=== PATIENT | male | born 1955 | race Caucasian/White ===

== ENCOUNTER 2017-02-10 03:11 | Emergency (ER) | payer MEDICARE, MEDICAID ==
--- NOTE | 2017-02-10 03:42 | Emergency Department Record ---
History of Present Illness - General Chief Complaint: Fall Injury Stated Complaint: FALL/KNEE INJURY Time Seen by Provider: 02/10/17 03:29 Source: Patient Mode of Arrival: Ambulatory Limitations: No limitations - History of Present Illness Initial Comments: The patient is here with his caregiver do to falling at hour ago at home. He was walking with his walker and tripped on the carpet and fell forward bumping his head and landing on his L knee. Since the fall he has been able to walk on the L leg but is having L knee pain. There was no LOC and no MARTINS or neck pain presently. The patient has a hx of seizures and mental retardation and possibly has had a brain injury in the past. The caregiver states the patient has been at his home for 4 days and uses a walker to ambulate. He denies any recent illness. The patient has had no recent vomiting, diarrhea, weakness, fever, chills, or new confusion. MD Complaint: Fall Onset/Timin -: Hour(s) When Fall Occurred: 1-3 [address] [facility] Fall Occurred: [facility] Loss of Consciousness: None Prolonged Down Time?: Yes Symptoms Prior to Fall: None Context: History of frequent falls, Tripped/slipped - [place] Coma Scale Eye Response: (4) Open spontaneously Motor Response: (6) Obeys commands Verbal Response: (5) Oriented [place] Total: 15 - Related Data Home Medications Medication Instructions Recorded Confirmed Last Taken Aspirin 81 mg PO DAILY 02/10/17 02/10/17 Unknown Atorvastatin Calcium 40 mg PO DAILY 02/10/17 02/10/17 Unknown Cholecalciferol (Vitamin D3) 5,000 unit PO ASDIR 02/10/17 02/10/17 Unknown [Vitamin D3] Darifenacin Hydrobromide 7.5 mg PO DAILY 02/10/17 02/10/17 Unknown [Darifenacin ER] Diphenhydramine HCl [Benadryl] 25 mg PO NOW PRN 02/10/17 02/10/17 Unknown Divalproex Sodium [Depakote ER] 250 mg PO QAM 02/10/17 02/10/17 Unknown Divalproex Sodium [Depakote] 1,500 mg PO QHS 02/10/17 02/10/17 Unknown Lamotrigine [Lamictal] 150 mg PO QHS 02/10/17 02/10/17 Unknown Melatonin 5 mg PO QHS 02/10/17 02/10/17 Unknown Metformin HCl 500 mg PO BID 02/10/17 02/10/17 Unknown Olanzapine [Zyprexa] 10 mg PO QAM 02/10/17 02/10/17 Unknown Olanzapine [Zyprexa] 30 mg PO QHS 02/10/17 02/10/17 Unknown Omeprazole [Prilosec] 20 mg PO DAILY 02/10/17 02/10/17 Unknown Paroxetine HCl [Paxil] 40 mg PO DAILY 02/10/17 02/10/17 Unknown Allergies Allergy/AdvReac Type Severity Reaction Status Date / Time Penicillins Allergy PT UNSURE Verified 02/10/17 03:52 OF REACTION Travel Screening - Travel/Exposure Within Last 30 Days Have you traveled within the last 30 days?: No Review of Systems Constitutional: Denies: Chills, Fever Eyes: Denies: Eye discharge ENT: Denies: Congestion Respiratory: Denies: Cough Past Medical History - SOCIAL HISTORY Smoking Status: Never smoker Alcohol Use: None Drug Use: None - RESPIRATORY Hx Respiratory Disorders: No - CARDIOVASCULAR Hx Cardio Disorders: No - NEURO Hx Neuro Disorders: Yes Hx Seizures: Yes Comment:: hx of brain bleed per caregiver - GI Hx GI Disorders: Yes Hx Reflux: Yes - Hx Genitourinary Disorders: No - ENDOCRINE Hx Endocrine Disorders: No - MUSCULOSKELETAL Hx Musculoskeletal Disorders: No - PSYCH Hx Psych Problems: Yes Hx Anxiety: Yes - HEMATOLOGY/ONCOLOGY Hx Hematology/Oncology Disorders: No Family Medical History Any Significant Family History?: No Family Hx Comment (NOT TO BE USED IN PLACE OF ITEMS BELOW): uknown Physical Exam - General General Appearance: Alert, Cooperative, No acute distress - Head Head exam: Atraumatic, Normocephalic, Normal inspection - Eye Eye exam: Normal appearance, PERRL - Neck Neck exam: Normal inspection, Full ROM. negative: Tenderness - Respiratory Respiratory exam: Normal lung sounds bilaterally. negative: Respiratory distress - Cardiovascular Cardiovascular Exam: Regular rate, Normal rhythm, Normal heart sounds - GI/Abdominal GI/Abdominal exam: Soft, Normal bowel sounds. negative: Tenderness - Extremities Extremities exam: Full ROM (There is full ROM of the L knee with mild pain.), Normal capillary refill, Tenderness (There is diffuse tenderness to the L knee.) . negative: Normal inspection (There is bruising to the L knee anteriorly.), Joint swelling - Neurological Neurological exam: Abnormal gait (Chronic. Walks with a walker normally.), Alert. negative: Altered, Motor sensory deficit Course Vital Signs 02/10/17 03:17 Temperature 98.4 F Pulse Rate [ 69 Pulse Ox Probe] Respiratory 24 Rate Blood Pressure 86/65 [Left Arm] Pulse Ox 95 - Reevaluation(s) Reevaluation #1: The patient is doing very well at this time. He denies any MARTINS, neck pain or knee pain. His BP is improved most likely due to using the proper cuff size while taking his BP. It seems his original BP measurements were with the large cuff and the patient actually needs the regular size cuff. The patient is mildly anemic but his HGB was 10.0 last at [facility] so his level is improved today. 02/10/17 04:27 Reevaluation #2: The patient is doing well at this time. I did discuss the results with the caregiver and the need for F/U possibly. 02/10/17 04:36 Medical Decision Making - Data Complexity MDM Data: Labs Ordered and/or Reviewed, X-Ray Ordered and/or Reviewed - Lab Data Result diagrams: 02/10/17 03:48 02/10/17 03:48 - Radiology Data Radiology results: Report reviewed (Head CT: Neg.), Image reviewed (L knee: Neg. ) Disposition Disposition: Discharge Clinical Impression: Contusion of knee Qualifiers: Encounter type: initial encounter Laterality: left Qualified Code(s): S80.02XA - Contusion of left knee, initial encounter Disposition: Home, Self-Care Condition: (1) Good Instructions: Knee Sprain (ED), Fall Prevention for Older Adults (ED) Additional Instructions: Please use ice on the L knee during the day when possible the next 2 days. Please use Tylenol for pain. Please see your PCP if not better in 3 days and return to the ER for any problems, pain, fever, or vomiting. Forms: Patient Portal Access Time of Disposition: 04:30 Quality - Quality Measures Quality Measures: N/A - Blood Pressure Screening View Details: Yes Blood Pressure Classification: Normal BP Reading Systolic Measurement: 106 Diastolic Measurement: 58 Screening for High Blood Pressure: < Normal BP, F/U Not Required > [G8783] Normal BP Follow-up Interventions: No follow-up required
[2017-02-10 03:56] LABS: BASO % 0.2 % (0-6); GRAN % 54.3 % (47-80); HEMATOCRIT 32.6 % (42.0-52.0); HEMOGLOBIN 10.8 gm/dl (14.0-18.0); MEAN CELL VOLUME 93.4 fl (81-97); MEAN CORPUSCULAR HEMOGLOBIN 30.9 pg (27-33); MEAN CORPUSCULAR HGB CONC 33.1 g/dl (32-36); MEAN PLATELET VOLUME 11.7 fl (7.4-10.4); MONO % 9.5 % (0-9); PLATELET COUNT 147 K/uL (130-400); RED BLOOD COUNT 3.49 M/uL (4.40-5.70); RED CELL DISTRIBUTION WIDTH 15.1 % (11.5-14.5); WHITE BLOOD COUNT W/O DIFF 6.5 K/uL (4.2-12.2)
[2017-02-10 04:07] LABS: BLOOD UREA NITROGEN 17 mg/dL (9-20); CREATININE 0.7 mg/dL (0.66-1.25); EST GLOMERULAR FILTRATION RATE > 60 ml/min; GLUCOSE,RANDOM 91 mg/dL (70-110)
--- NOTE | 2017-02-10 13:28 | RADIOLOGY REPORT ---
EXAM: LEFT KNEE HISTORY: PATIENT FELL AN HOUR PRIOR TO ARRIVING, LANDING ON LEFT KNEE AND HITTING HEAD ON FLOOR. TECHNIQUE: Three views of the left knee were obtained. Comparison: None. Encounter: Initial. FINDINGS: Mild spurring is seen involving the patella. On the oblique view there is a small calcification adjacent to the superior end of the fibular head. This appears chronic in nature although correlation with point tenderness suggested. No definite fracture, dislocation, or joint effusion evident. Very minor spurring in the medial and lateral compartments of the knee. IMPRESSION: 1. MINOR DEGENERATIVE CHANGES AT THE KNEE. 2. SMALL CALCIFICATION JUST SUPERIOR TO THE FIBULAR HEAD IS LIKELY CHRONIC IN NATURE. CORRELATION WITH POINT TENDERNESS SUGGESTED. 3. THE REMAINDER OF THE LEFT KNEE APPEARS NEGATIVE. JOB NUMBER: [id number] [facility]
--- NOTE | 2017-02-10 13:40 | CT SCAN REPORT ---
EXAM: EMERGENCY HEAD CT HISTORY: PATIENT FELL AN HOUR PRIOR TO ARRIVAL HITTING HEAD ON FLOOR. TECHNIQUE: Axial CT scan of the head was performed without IV contrast. A preliminary report was provided by [facility]. Comparison: None. Encounter: Initial. FINDINGS: No definite acute intracranial hemorrhage identified. No focal mass effect or midline shift apparent. Mild generalized atrophy is present with some chronic appearing deep white matter changes, nonspecific, but likely representing some chronic small vessel deep white matter ischemic disease. No definite acute infarct or intracranial mass lesion is seen. Moderate membrane thickening in the right maxillary antrum and prominent opacification posteriorly in the right ethmoid sinus. No actual air fluid levels in the paranasal sinuses evident. Relatively little pneumatization of the mastoids particularly on the right, probably developmental. IMPRESSION: 1. NO DEFINITE ACUTE INTRACRANIAL HEMORRHAGE OR FOCAL MASS EFFECT EVIDENT. 2. GENERALIZED ATROPHY WITH SOME CHRONIC APPEARING DEEP WHITE MATTER CHANGES. 3. SOME MEMBRANE THICKENING IN THE RIGHT MAXILLARY SINUS AND PROMINENT OPACIFICATION POSTERIORLY IN THE RIGHT ETHMOIDS. JOB NUMBER: [id number] [facility]
== END 2017-02-10 04:48 | disposition home or self-care (01) ==
LOC: ER 03:11
DX: S80.02XA Contusion of left knee, initial encounter (principal); S09.90XA Unspecified injury of head, initial encounter; D64.9 Anemia, unspecified; G40.909 Epilepsy, unspecified, not intractable, without status epilepticus; F79 Unspecified intellectual disabilities; W01.10XA Fall on same level from slipping, tripping and stumbling with subsequent striking against unspecified object, initial encounter; Y92.129 Unspecified place in nursing home as the place of occurrence of the external cause; Z91.81 History of falling
CPT/HCPCS: 70450; 80048; 80164; 85025; 99283; 99284

== ENCOUNTER 2017-03-16 01:59 | Emergency (ER) | payer MEDICARE, MEDICAID ==
--- NOTE | 2017-03-16 02:10 | Emergency Department Record ---
History of Present Illness - General Chief Complaint: Fall Injury Stated Complaint: FALL Time Seen by Provider: 03/16/17 02:05 Source: Patient Mode of Arrival: Ambulatory Limitations: No limitations - History of Present Illness Initial Comments: 61 yo male presents after a fall a local [facility]. No LOC. He did hit his forehead. He denies any other pain or injuries. The patient uses a walker. He was getting up to the bathroom and tripped using the walker. No neck, back, chest, abdominal or extremity pain. He has laceration on the left forehead. No vomiting or new confusion. MD Complaint: Fall -: Minutes(s) Fall From: Standing When Fall Occurred: Just prior to arrival Fall Witnessed: Yes, by living facility staff Place Fall Occurred: Home Loss of Consciousness: None Prolonged Down Time?: No Symptoms Prior to Fall: None Location: Head, Face Severity: Mild Quality: Aching Associated Symptoms: Denies - [place] Coma Scale Eye Response: (4) Open spontaneously Motor Response: (6) Obeys commands Verbal Response: (5) Oriented [place] Total: 15 - Related Data Home Medications Medication Instructions Recorded Confirmed Last Taken Acetaminophen [Tylenol 500Mg Tab] 500 mg PO DAILY PRN 03/16/17 03/16/17 Unknown Lisinopril 20 mg PO DAILY 03/16/17 03/16/17 Unknown Allergies Allergy/AdvReac Type Severity Reaction Status Date / Time Penicillins Allergy PT UNSURE Verified 02/10/17 03:52 OF REACTION Review of Systems Constitutional: Denies: Chills, Fever, Malaise Eyes: Denies: Eye discharge, Eye pain ENT: Denies: Congestion, Throat pain Respiratory: Denies: Cough Cardiovascular: Denies: Chest pain, Palpitations, Syncope Endocrine: Denies: Fatigue Gastrointestinal: Denies: Abdominal pain, Diarrhea, Nausea, Vomiting Genitourinary: Denies: Dysuria, Frequency, Hematuria Musculoskeletal: Denies: Arthralgia, Back pain, Myalgia Skin: Reports: As per HPI, Other Neurological: Denies: Headache Psychiatric: Denies: Anxiety Hematological/Lymphatic: Denies: Blood Clots, Easy bleeding, Easy bruising Past Medical History - SOCIAL HISTORY Smoking Status: Never smoker Drug Use: None - RESPIRATORY Hx Respiratory Disorders: No - CARDIOVASCULAR Hx Cardio Disorders: No - NEURO Hx Neuro Disorders: Yes Hx Seizures: Yes Comment:: hx of brain bleed per caregiver - GI Hx GI Disorders: Yes Hx Reflux: Yes - Hx Genitourinary Disorders: No - ENDOCRINE Hx Endocrine Disorders: No - MUSCULOSKELETAL Hx Musculoskeletal Disorders: No - PSYCH Hx Psych Problems: Yes Hx Anxiety: Yes - HEMATOLOGY/ONCOLOGY Hx Hematology/Oncology Disorders: No Family Medical History Family Hx Comment (NOT TO BE USED IN PLACE OF ITEMS BELOW): uknown Physical Exam - General General Appearance: Alert, Cooperative, No acute distress, Other (At baseline) - Head Head exam: negative: Atraumatic Head exam detail: Laceration Image of Face/Head: 1 - 1.5cm laceration - Eye Eye exam: Normal appearance, EOMI. negative: Conjunctival injection, Periorbital swelling - ENT ENT exam: Normal exam, Mucous membranes moist Ear exam: Normal external inspection Nasal Exam: Normal inspection Mouth exam: Normal external inspection - Neck Neck exam: Normal inspection, Full ROM. negative: Tenderness - Respiratory Respiratory exam: Normal lung sounds bilaterally. negative: Chest wall tenderness, Respiratory distress - Cardiovascular Cardiovascular Exam: Regular rate, Normal rhythm, Normal heart sounds Peripheral Pulses: 2+: Radial (R), Radial (L) - GI/Abdominal GI/Abdominal exam: Soft. negative: Distended, Guarding, Rebound, Tenderness - Rectal Rectal exam: Deferred - exam: Deferred - Extremities Extremities exam: Normal inspection, Full ROM, Normal capillary refill. negative: Tenderness Image of Hand: 1 - mild swelling and mild bruising, tender, intact skin - Back Back exam: Reports: Full ROM. Denies: CVA tenderness (R), CVA tenderness (L), Paraspinal tenderness, Tenderness, Vertebral tenderness - Neurological Neurological exam: Alert, Normal gait (ambulates well with walker), Oriented X3. negative: Motor sensory deficit - Psychiatric Psychiatric exam: Normal affect, Normal mood - Skin Skin exam: Dry, Intact, Normal color, Warm Course - Reevaluation(s) Reevaluation #1: Procedure !.5cm forehead laceration repair Betadine prep Lidocaine with Epi 1.5ml NS irrigation and cleaning copiously No FB Prolene 4-0 suture #4 Good wound approximation. Tolerated Well. 03/16/17 02:30 Reevaluation #2: HCT no acute injury. chronic sinusitis DC home stable with instructions for home care and reasons to return to the ED 03/16/17 03:19 Reevaluation #3: At DC left hand bruising noted. May not be acute but it is tender so XR ordered. 03/16/17 03:33 Reevaluation #4: XR demonstrates a 5th finger proximal phalange fx and a 4th MC fracture. He will be splinted and referred to ortho/hand. 03/16/17 03:46 Disposition Disposition: Discharge Clinical Impression: Contusion of head Qualifiers: Encounter type: initial encounter Contusion of head detail: other part of head Qualified Code(s): S00.83XA - Contusion of other part of head, initial encounter Forehead laceration Qualifiers: Encounter type: initial encounter Qualified Code(s): S01.81XA - Laceration without foreign body of other part of head, initial encounter Hand fracture, left Qualifiers: Encounter type: initial encounter Fracture type: closed Qualified Code(s): S62.92XA - Unspecified fracture of left wrist and hand, initial encounter for closed fracture Disposition: Home, Self-Care Condition: (1) Good Instructions: Laceration (ED), Fall Prevention for Older Adults (ED) Additional Instructions: Return if you have any concerns for infection such as fever, red, pus or concerns Return in 7 days for suture removal Return sooner if any new pain, dizzy, concerns about the healing of the laceration of the forehead Call the number provided for a referral for the left hand fracture Referrals: SHARON OGLESBY M.D. [MEDICAL DOCTOR] - Forms: Patient Portal Access Time of Disposition: 03:20 Quality - Quality Measures Quality Measures: N/A - Blood Pressure Screening Does Patient Have Any of the Following: No Blood Pressure Classification: Normal BP Reading Systolic Measurement: 95 Diastolic Measurement: 50 Screening for High Blood Pressure: < Normal BP, F/U Not Required > [G8783]
--- NOTE | 2017-03-16 14:20 | RADIOLOGY REPORT ---
EXAM: LEFT HAND HISTORY: PATIENT FELL FROM STANDING POSITION HITTING HEAD ON FLOOR AND PAIN IN THE LEFT HAND. TECHNIQUE: Three views of the left hand were obtained. Comparison: None. FINDINGS: There is a comminuted fracture of the proximal phalanx of the fifth finger that extends from the distal metaphysis proximally to the level of the fifth MCP joint. Minimal associated displacement. The PIP joint of the fifth finger held in flexion which is presumably chronic for the patient. There is also an oblique fracture of the mid shaft extending into the distal metaphysis of the fourth metacarpal with some dorsal angulation of the proximal aspect of the distal fracture fragment probably by approximately 5.5 mm. There is overlying soft tissue swelling. Some radiolucency in the mid shaft of the fifth metacarpal may represent an enchondroma and does not appear acute. There is probably also an acute fracture of the proximal metaphysis of the distal phalanx of the fourth finger and clinical correlation as to point tenderness at this site suggested. Mild degenerative arthritis at the first CMC articulation at the first MCP joint. IMPRESSION: 1. ACUTE FRACTURES OF THE PROXIMAL PHALANX OF THE FIFTH FINGER, FOURTH METACARPAL, AND PROBABLY THE DISTAL PHALANX OF THE FOURTH FINGER DESCRIBED ABOVE. OVERLYING SOFT TISSUE SWELLING. 2. RADIOLUCENT LESION IN THE MID SHAFT OF THE FIFTH METACARPAL APPEARS CHRONIC AND MAY REPRESENT AN ENCHONDROMA. JOB NUMBER: [id number] [facility]
--- NOTE | 2017-03-16 14:53 | CT SCAN REPORT ---
EXAM: EMERGENCY HEAD CT WITHOUT CONTRAST HISTORY: PATIENT FELL WITH HEAD INJURY AND LACERATION OVERLYING THE LEFT SUPERIOR ORBITAL REGION. TECHNIQUE: Axial CT scan of the head was performed without IV contrast. A preliminary report was provided by [facility]. Comparison: Head CT 02/10/17. Encounter: Initial. FINDINGS: No definite acute intracranial hemorrhage identified. No focal mass effect or midline shift evident. Generalized atrophy with some chronic appearing deep white matter changes as before, nonspecific, but likely representing some chronic small vessel deep white matter ischemic disease. There is a small amount of air in the scalp overlying the left forehead consistent with a scalp laceration in this region. This is new compared with the prior CT. No abnormal intraorbital air identified. There is prominent opacification in the posterior aspect of the right ethmoid sinus and adjacent sphenoid sinus which appears slightly progressed compared to the prior study. Membrane thickening in the right maxillary antrum appears essentially unchanged as does a minor amount at the floor of the left maxillary antrum. No depressed calvarial fracture is evident. IMPRESSION: 1. NO DEFINITE ACUTE INTRACRANIAL HEMORRHAGE OR FOCAL MASS EFFECT EVIDENT. 2. GENERALIZED ATROPHY WITH SOME MINOR CHRONIC APPEARING DEEP WHITE MATTER CHANGES BEFORE. 3. APPEARANCE CONSISTENT WITH A SCALP LACERATION OVERLYING THE LEFT FOREHEAD. NO UNDERLYING CALVARIAL FRACTURE EVIDENT. 4. MEMBRANE THICKENING IN THE MAXILLARY ANTRA BILATERALLY, RIGHT GREATER THAN LEFT BEFORE. MILD PROGRESSION IN PROMINENT OPACIFICATION IN THE RIGHT POSTERIOR ETHMOID AND RIGHT SPHENOID SINUS. JOB NUMBER: [id number] [facility]
== END 2017-03-16 04:05 | disposition home or self-care (01) ==
LOC: ER 01:59
DX: S01.81XA Laceration without foreign body of other part of head, initial encounter (principal); S62.637A Displaced fracture of distal phalanx of left little finger, initial encounter for closed fracture; W01.0XXA Fall on same level from slipping, tripping and stumbling without subsequent striking against object, initial encounter; Y92.009 Unspecified place in unspecified non-institutional (private) residence as the place of occurrence of the external cause
CPT/HCPCS: 12011; 70450; 99283; 99284

== ENCOUNTER 2017-07-27 00:08 | Emergency (ER) | payer MEDICARE, MEDICAID ==
[2017-07-27] MEDS ORDERED: SODIUM CHLORIDE 0.9% 500 ML IV ONE (00:25)
[2017-07-27 00:35] LABS: HEMATOCRIT 31.6 % (42.0-52.0); HEMOGLOBIN 10.2 gm/dl (14.0-18.0); MEAN CELL VOLUME 96.3 fl (81-97); MEAN CORPUSCULAR HGB CONC 32.3 g/dl (32-36); MEAN PLATELET VOLUME 11.2 fl (7.4-10.4); PLATELET COUNT 107 K/uL (130-400); RED BLOOD COUNT 3.28 M/uL (4.40-5.70); RED CELL DISTRIBUTION WIDTH 15.9 % (11.5-14.5); WHITE BLOOD COUNT W/O DIFF 7.3 K/uL (4.2-12.2)
[2017-07-27 00:45] LABS: BLOOD UREA NITROGEN 21 mg/dL (8-23); CREATININE 0.8 mg/dL (0.7-1.2); EST GLOMERULAR FILTRATION RATE > 60 mL/min; INFLUENZA A POSITIVE (NEGATIVE); INFLUENZA B NEGATIVE (NEGATIVE)
[2017-07-27 00:46] LABS: TOTAL PROTEIN 5.9 g/dL (6.6-8.7)
[2017-07-27 00:48] LABS: GLUCOSE,RANDOM 92 mg/dL (74-109)
[2017-07-27 00:50] LABS: ALT/SGPT 21 U/L (<41)
[2017-07-27 00:51] LABS: ALB/GLOB RATIO 1.2 (1.1-1.8); ALBUMIN 3.2 g/dL (4.0-5.0); ALKALINE PHOSPHATASE 52 U/L (40-129); AST/SGOT 32 U/L (10.0-50.0)
[2017-07-27] MEDS ORDERED: ACETAMINOPHEN 1,000 MG/100 ML BTL IVPB ONE (01:00)
--- NOTE | 2017-07-27 01:06 | Emergency Department Record ---
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 he had a temp of 100.5. he lives in adult foster care. he has cerebral palsy. there reportedly have been no other illnesses at [facility] MD Complaint: Fever, Malaise, Weakness Onset/Timin -: Hour(s) Maximum Temperature: 100.5 F Temperature Source: Oral Associated Symptoms: Chills, Cough, Nasal congestion Treatments Prior to Arrival: None - Related Data Home Medications Medication Instructions Recorded Confirmed Last Taken Ergocalciferol (Vitamin D2) 1.25 unit PO WEEKLY 07/27/17 07/27/17 Unknown [Ergocalciferol] Allergies Allergy/AdvReac Type Severity Reaction Status Date / Time Penicillins Allergy PT UNSURE Verified 02/10/17 03:52 OF REACTION Travel Screening - Travel/Exposure Within Last 30 Days Have you traveled within the last 30 days?: No - Travel Symptoms Symptom Screening: Fever (Subjective), Fever (GT 100.4), Weakness, Fatigue, Chills Review of Systems ROS unobtainable: Due to mental status Past Medical History - SOCIAL HISTORY Smoking Status: Never smoker Alcohol Use: None Drug Use: None - RESPIRATORY Hx Respiratory Disorders: No - CARDIOVASCULAR Hx Cardio Disorders: No Hx Hypertension: Yes - NEURO Hx Neuro Disorders: Yes Hx Seizures: Yes Comment:: hx of brain bleed per caregiver, CEREBAL PALSY - GI Hx GI Disorders: Yes Hx Reflux: Yes - Hx Genitourinary Disorders: Yes Hx Bladder Problem: Yes (overactive bladder) - ENDOCRINE Hx Endocrine Disorders: No Hx Diabetes: Yes (DM2) - MUSCULOSKELETAL Hx Musculoskeletal Disorders: No - PSYCH Hx Psych Problems: Yes Hx Anxiety: Yes - HEMATOLOGY/ONCOLOGY Hx Hematology/Oncology Disorders: No Family Medical History Any Significant Family History?: No Family Hx Comment (NOT TO BE USED IN PLACE OF ITEMS BELOW): UNKNOWN Physical Exam - General General Appearance: Alert, Cooperative, Moderate distress - Head Head exam: Normal inspection - Eye Eye exam: Normal appearance, PERRL, EOMI Pupils: Normal accommodation - ENT ENT exam: Normal exam, Mucous membranes dry, Normal external ear exam, Normal orophraynx Ear exam: Normal external inspection. negative: External canal tenderness Nasal Exam: Normal inspection. negative: Discharge, Sinus tenderness Mouth exam: Normal external inspection, Tongue normal Teeth exam: Normal inspection. negative: Dental caries Throat exam: Normal inspection. negative: Tonsillar erythema, Tonsillar exudate - Neck Neck exam: Normal inspection, Full ROM. negative: Tenderness - Respiratory Respiratory exam: Normal lung sounds bilaterally. negative: Respiratory distress - Cardiovascular Cardiovascular Exam: Normal rhythm, Normal heart sounds, Tachycardia - GI/Abdominal GI/Abdominal exam: Soft, Normal bowel sounds. negative: Tenderness - Rectal Rectal exam: Deferred - exam: Deferred - Extremities Extremities exam: Normal inspection, Full ROM, Normal capillary refill. negative: Tenderness - Back Back exam: Reports: Normal inspection, Full ROM. Denies: Muscle spasm, Rash noted, Tenderness - Neurological Neurological exam: Alert, CN II-XII intact, Normal gait, Other (contractures from cp) - Psychiatric Psychiatric exam: Normal affect, Normal mood - Skin Skin exam: Dry, Intact, Normal color, Warm Course Vital Signs 07/27/17 07/27/17 07/27/17 00:15 00:24 00:25 Temperature 101.5 F H 101.5 F H Pulse Rate 115 H Pulse Rate [ 115 H 107 H Pulse Ox Probe] Respiratory 18 22 24 Rate Blood Pressure 77/28 Blood Pressure 80/31 [Left Arm] Blood Pressure 77/28 [Right Arm] Pulse Ox 92 L 90 L 94 L 07/27/17 00:30 Temperature Pulse Rate Pulse Rate [ Pulse Ox Probe] Respiratory Rate Blood Pressure Blood Pressure 103/67 [Left Arm] Blood Pressure [Right Arm] Pulse Ox - Reevaluation(s) Reevaluation #1: 07/27/17 02:14 d/w dr mayer Reevaluation #2: 07/27/17 02:15 pt is alert and responds verbally to questions. pt has irregular breathing pattern when sleeping but im told by caregiver that he always does and that he is supposed to wear bipap at night but refuses.pt is maintaining sats 90-94. bloodpresure has improved Medical Decision Making - Lab Data Result diagrams: 07/27/17 00:25 07/27/17 00:25 Lab Results 07/27/17 07/27/17 07/27/17 Range/Units 00:25 00:25 00:25 WBC 7.3 (4.2-12.2) K/uL RBC 3.28 L (4.40-5.70) M/uL Hgb 10.2 L (14.0-18.0) gm/dl Hct 31.6 L (42.0-52.0) % MCV 96.3 (81-97) fl MCH 31.0 (27-33) pg MCHC 32.3 (32-36) g/dl RDW 15.9 H (11.5-14.5) % Plt Count 107 L (130-400) K/uL MPV 11.2 H (7.4-10.4) fl Neutrophils % 83.0 H (47-80) % Band Neutrophils % 0.0 (0-5) % Eosinophils % Not Reportable Basophils % Not Reportable Lymphocytes 5.0 L (16-45) % Monocytes 12.0 H (0-9) % Basophils 0.0 (0-6) % Eosinophil Count 0.0 (0-6) % Sodium 138 (136-145) mmol/L Potassium 4.2 (3.4-4.5) mmol/L Chloride 100 (98-107) mmol/L Carbon Dioxide 26.0 (22-29) mmol/L Anion Gap 12.0 (7-16) BUN 21 (8-23) mg/dL Creatinine 0.8 (0.7-1.2) mg/dL Estimated GFR > 60 mL/min Random Glucose 92 (74-109) mg/dL Lactic Acid Cancelled Calcium 8.4 L (8.8-10.2) mg/dL Total Bilirubin 0.30 (0.2-1.0) mg/dL AST 32 (10.0-50.0) U/L ALT 21 (<41) U/L Alkaline Phosphatase 52 (40-129) U/L Total Protein 5.9 L (6.6-8.7) g/dL Albumin 3.2 L (4.0-5.0) g/dL Globulin 2.7 (1.4-4.8) gm/dL Albumin/Globulin Ratio 1.2 (1.1-1.8) Influenza Type A Ag Positive H (NEGATIVE) Influenza Type B Ag Negative (NEGATIVE) 07/27/17 Range/Units 00:33 WBC (4.2-12.2) K/uL RBC (4.40-5.70) M/uL Hgb (14.0-18.0) gm/dl Hct (42.0-52.0) % MCV (81-97) fl MCH (27-33) pg MCHC (32-36) g/dl RDW (11.5-14.5) % Plt Count (130-400) K/uL MPV (7.4-10.4) fl Neutrophils % (47-80) % Band Neutrophils % (0-5) % Eosinophils % Basophils % Lymphocytes (16-45) % Monocytes (0-9) % Basophils (0-6) % Eosinophil Count (0-6) % Sodium (136-145) mmol/L Potassium (3.4-4.5) mmol/L Chloride (98-107) mmol/L Carbon Dioxide (22-29) mmol/L Anion Gap (7-16) BUN (8-23) mg/dL Creatinine (0.7-1.2) mg/dL Estimated GFR mL/min Random Glucose (74-109) mg/dL Lactic Acid 2.0 Calcium (8.8-10.2) mg/dL Total Bilirubin (0.2-1.0) mg/dL AST (10.0-50.0) U/L ALT (<41) U/L Alkaline Phosphatase (40-129) U/L Total Protein (6.6-8.7) g/dL Albumin (4.0-5.0) g/dL Globulin (1.4-4.8) gm/dL Albumin/Globulin Ratio (1.1-1.8) Influenza Type A Ag (NEGATIVE) Influenza Type B Ag (NEGATIVE) Disposition Disposition: Transfer Clinical Impression: Influenza A Disposition: Acute Care Hospital Transfer Transfer To: [facility] Reason For Transfer: needs higher acuity bed Accepting Physician: dr yi Time Discussed w/Accepting Physician: 02:13 Forms: Patient Portal Access Quality - Quality Measures Quality Measures: N/A - Blood Pressure Screening Does Patient Have Any of the Following: No Blood Pressure Classification: Normal BP Reading Systolic Measurement: 77 Diastolic Measurement: 28 Screening for High Blood Pressure: < Normal BP, F/U Not Required > [G8783]
[2017-07-27] MEDS ORDERED: OSTELTAMIVIR 75 MG CAP PO ONE (02:02)
--- NOTE | 2017-07-27 20:58 | RADIOLOGY REPORT ---
EXAM: CHEST 2 VIEWS HISTORY: FEVER AND COUGH. TECHNIQUE: AP and lateral views. COMPARISON: None. FINDINGS: Heart size is within normal limits allowing for the AP positioning. There is some minor streaky atelectasis or infiltrate in the left base. No pleural effusion or pneumothorax evident. There is mild compression of multiple thoracic vertebrae, particularly the approximate seventh. This is presumably chronic, although comparison with any prior thoracic spine series or chest x- rays including lateral views would be useful to confirm. There is also a thoracic curve to the right. Surgical clips in the right upper quadrant of the abdomen, presumably from cholecystectomy. IMPRESSION: 1. MILD STREAKY ATELECTASIS OR INFILTRATE IN THE LEFT BASE. 2. THORACIC CURVE TO THE RIGHT WITH MILD COMPRESSION OF MULTIPLE THORACIC VERTEBRAE, PRESUMABLY CHRONIC, ALTHOUGH RECOMMEND COMPARISON WITH OLD FILMS. 3. SURGICAL CLIPS RIGHT UPPER QUADRANT OF THE ABDOMEN. JOB NUMBER: [id number] MTDD
== END 2017-07-27 03:10 | disposition short-term general hospital (02) ==
LOC: ER 00:08
DX: J10.1 Influenza due to other identified influenza virus with other respiratory manifestations (principal); R53.1 Weakness; I10 Essential (primary) hypertension; E11.9 Type 2 diabetes mellitus without complications; G80.9 Cerebral palsy, unspecified
CPT/HCPCS: 71046; 80053; 83605; 85027; 87400; 96374; 99285

== ENCOUNTER 2018-02-26 16:09 | Emergency (ER) | payer MEDICARE, MEDICAID ==
[2018-02-26] MEDS ORDERED: TOPICAL LIDOCAINE W/ EPI 5 ML TOP ONE (16:36)
--- NOTE | 2018-02-26 17:23 | Emergency Department Record ---
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 no loc, no vomiting. MD Complaint: Head injury Onset/Timin -: Hour(s) Mechanism of Injury: Mechanical fall Location: Occipital Place: Home Severity scale (1-10): 4 Quality: Aching Consistency: Constant Other Injuries: Laceration - Related Data Allergies/Adverse reactions: Allergies Allergy/AdvReac Type Severity Reaction Status Date / Time Penicillins Allergy PT UNSURE Verified 02/26/18 16:26 OF REACTION Travel Screening - Travel/Exposure Within Last 30 Days Have you traveled within the last 30 days?: No - Travel/Exposure Within Last Year Have you traveled outside the [place] in the last year?: No - Additonal Travel Details Have you been exposed to anyone with a communicable illness?: No - Travel Symptoms Symptom Screening: None Review of Systems Reviewed: No additional complaints except as noted below Constitutional: Reports: As per HPI. Denies: Chills, Fever, Malaise, Night sweats, Weakness, Weight change Eyes: Reports: As per HPI. Denies: Eye discharge, Eye pain, Photophobia, Vision change ENT: Reports: As per HPI. Denies: Congestion, Dental pain, Ear pain, Epistaxis , Hearing loss, Throat pain Respiratory: Reports: As per HPI. Denies: Cough, Dyspnea, Hemoptysis, Stridor, Wheezes Cardiovascular: Reports: As per HPI. Denies: Arrhythmia, Chest pain, Dyspnea on exertion, Edema, Murmurs, Orthopnea, Palpitations, Paroxysmal nocturnal dyspnea, Rheumatic Fever, Syncope Endocrine: Reports: As per HPI. Denies: Fatigue, Heat or cold intolerance, Polydipsia, Polyuria Gastrointestinal: Reports: As per HPI. Denies: Abdominal pain, Constipation, Diarrhea, Hematemesis, Hematochezia, Melena, Nausea, Vomiting Genitourinary: Reports: As per HPI. Denies: Dysuria, Frequency, Hematuria, Incontinence, Retention, Testicular pain, Testicular mass, Urgency Musculoskeletal: Reports: As per HPI. Denies: Arthralgia, Back pain, Gout, Joint swelling, Myalgia, Neck pain Skin: Reports: As per HPI. Denies: Bruising, Change in color, Change in hair/ nails, Lesions, Pruritus, Rash Neurological: Reports: As per HPI. Denies: Abnormal gait, Confusion, Headache, Numbness, Paresthesias, Seizure, Tingling, Tremors, Vertigo, Weakness Psychiatric: Reports: As per HPI. Denies: Anxiety, Auditory hallucinations, Depression, Homicidal thoughts, Suicidal thoughts, Visual hallucinations Hematological/Lymphatic: Reports: As per HPI. Denies: Anemia, Blood Clots, Easy bleeding, Easy bruising, Swollen glands Past Medical History - SOCIAL HISTORY Smoking Status: Never smoker Alcohol Use: None Drug Use: None - RESPIRATORY Hx Respiratory Disorders: No Hx Sleep Apnea: Yes Hx of CPAP: Yes - CARDIOVASCULAR Hx Cardio Disorders: No Hx Hypertension: Yes - NEURO Hx Neuro Disorders: Yes Hx Seizures: Yes Comment:: hx of brain bleed per caregiver, CEREBAL PALSY - GI Hx GI Disorders: Yes Hx Reflux: Yes - Hx Genitourinary Disorders: Yes Hx Bladder Problem: Yes (overactive bladder) - ENDOCRINE Hx Endocrine Disorders: No Hx Diabetes: Yes (DM2) - MUSCULOSKELETAL Hx Musculoskeletal Disorders: No - PSYCH Hx Psych Problems: Yes Hx Anxiety: Yes (panic attack) Hx Depression: Yes Comment:: schizophrenia - HEMATOLOGY/ONCOLOGY Hx Hematology/Oncology Disorders: No Family Medical History Any Significant Family History?: Yes Family Hx Comment (NOT TO BE USED IN PLACE OF ITEMS BELOW): UNKNOWN Physical Exam - General General Appearance: Alert, Oriented x3, Cooperative, Mild distress - Head Head exam: Normal inspection Head exam detail: Hematoma, Laceration Image of Face/Head: 1 - 1.fcm lac w mod hematoma - Eye Eye exam: Normal appearance, PERRL, EOMI Pupils: Normal accommodation - ENT ENT exam: Normal exam, Mucous membranes moist, Normal external ear exam, Normal orophraynx Ear exam: Normal external inspection. negative: External canal tenderness Nasal Exam: Normal inspection. negative: Discharge, Sinus tenderness Mouth exam: Normal external inspection, Tongue normal Teeth exam: Normal inspection. negative: Dental caries Throat exam: Normal inspection. negative: Tonsillar erythema, Tonsillar exudate - Neck Neck exam: Normal inspection, Full ROM. negative: Tenderness - Respiratory Respiratory exam: Normal lung sounds bilaterally. negative: Respiratory distress - Cardiovascular Cardiovascular Exam: Regular rate, Normal rhythm, Normal heart sounds - GI/Abdominal GI/Abdominal exam: Soft, Normal bowel sounds. negative: Tenderness - Rectal Rectal exam: Deferred - exam: Deferred - Extremities Extremities exam: Normal inspection, Full ROM, Normal capillary refill. negative: Tenderness - Back Back exam: Reports: Normal inspection, Full ROM. Denies: Muscle spasm, Rash noted, Tenderness - Neurological Neurological exam: Alert, CN II-XII intact, Normal gait, Oriented X3 - Psychiatric Psychiatric exam: Normal affect, Normal mood - Skin Skin exam: Dry, Intact, Normal color, Warm Course Vital Signs 02/26/18 16:12 Temperature 98.1 F Pulse Rate 86 Respiratory 20 Rate Blood Pressure 92/61 Pulse Ox 96 Medical Decision Making - Lab Data Result diagrams: 02/26/18 17:45 02/26/18 17:45 Disposition Disposition: Discharge Clinical Impression: Laceration Head injury Qualifiers: Encounter type: initial encounter Qualified Code(s): S09.90XA - Unspecified injury of head, initial encounter Hypotension Qualifiers: Hypotension type: unspecified hypotension type Qualified Code(s): I95.9 - Hypotension, unspecified Disposition: Home, Self-Care Condition: (1) Good Instructions: Head Injury (ED), Laceration (ED), Staple Care (ED) Additional Instructions: follow up with family doctor. return sooner if worse. neo out in 12-14 days. return sooner if worse. sleep elevated. Forms: Patient Portal Access Quality - Blood Pressure Screening Does Patient Have Any of the Following: No Blood Pressure Classification: Normal BP Reading Systolic Measurement: 92 Diastolic Measurement: 61 Screening for High Blood Pressure: < Normal BP, F/U Not Required > [G8783] Laceration - Head - Time Out Informed consent:: Informed consent obtained Confirmed first & last name, , procedure, correct site?: Yes - Location Location of laceration:: Posterior Laceration located on:: Scalp Length of laceration:: 1.5 Length of laceration:: cm - Clean and Prep Laceration cleaning method:: Cleansed Laceration cleaning agent:: Normal Saline - Topical Anesthetic EMLA cream used?: Yes - Medication Medicated for procedure?: No - Procedural Detail Tissue detail:: Torn Foreign body in the wound?: No Undermining was preformed?: No Stent applied?: No [place] applied?: No Total number of neo:: 2
[2018-02-26] MEDS ORDERED: 0.9 % SODIUM CHLORIDE 1,000 ML BAG IV ONE (17:35)
[2018-02-26 17:58] LABS: BASO % 0.1 % (0-6); EOS % 0.1 % (0-6); GRAN % 79.4 % (47-80); HEMATOCRIT 38.1 % (42.0-52.0); HEMOGLOBIN 12.4 gm/dl (14.0-18.0); LYMPH % 6.9 % (16-45); MEAN CELL VOLUME 97.7 fl (81-97); MEAN CORPUSCULAR HEMOGLOBIN 31.7 pg (27-33); MEAN CORPUSCULAR HGB CONC 32.5 g/dl (32-36); MEAN PLATELET VOLUME 11.6 fl (7.4-10.4); MONO % 13.5 % (0-9); PLATELET COUNT 143 K/uL (130-400); RED CELL DISTRIBUTION WIDTH 16.3 % (11.5-14.5); WHITE BLOOD COUNT W/O DIFF 11.3 K/uL (4.2-12.2)
[2018-02-26 18:40] LABS: BLOOD UREA NITROGEN 25 mg/dL (8-23); CREATININE 0.8 mg/dL (0.7-1.2); EST GLOMERULAR FILTRATION RATE > 60 mL/min
[2018-02-26 18:43] LABS: GLUCOSE,RANDOM 96 mg/dL (74-109)
[2018-02-26 18:46] LABS: VALPROIC ACID (DEPAKENE) 69.6 ug/mL (50.0-100.0)
--- NOTE | 2018-02-27 13:28 | CT SCAN REPORT ---
EXAM: EMERGENCY HEAD CT WITHOUT CONTRAST HISTORY: HEAD INJURY, FELL TODAY WITH WITH POSTERIOR SKULL LACERATION. TECHNIQUE: Axial CT scan of the head was performed without IV contrast. Preliminary report provided by [facility]. Comparison: Head CT 03/16/17. FINDINGS: No definite acute intracranial hemorrhage identified. No focal mass effect or midline shift evident. Some generalized atrophy again noted as before. No definite acute infarct or intracranial mass lesion seen. Prominent apparent scalp laceration posteriorly in the right posterior parietal/upper occipital region. No underlying calvarial fracture evident. A tiny amount of air in the region of the right cavernous sinus is nonspecific, but commonly just do to iatrogenic introduction related to venous access. Moderate membrane thickening in the maxillary antra bilaterally with a small right air fluid level. Opacification of much of the right sphenoid sinus also present previously, probably with a small amount of calcification suggesting a chronic process. Slight thickening of the wall of the sphenoid sinus also commonly seen with chronic inflammatory disease. IMPRESSION: 1. GENERALIZED ATROPHY BEFORE. 2. NO DEFINITE ACUTE INTRACRANIAL HEMORRHAGE OR FOCAL MASS EFFECT EVIDENT. 3. APPARENT SCALP HEMATOMA POSTERIORLY IN THE RIGHT PARIETAL OCCIPITAL REGION. 4. SMALL AMOUNT OF AIR IN THE RIGHT CAVERNOUS SINUS, NONSPECIFIC ALTHOUGH PRESUMABLY IATROGENIC RELATED TO VENOUS ACCESS. 5. PROMINENT OPACIFICATION OF THE RIGHT SPHENOID SINUS SIMILAR TO BEFORE WITH SOME SCLEROSIS AND THICKENING OF THE RIGHT SPHENOID SINUS WALL AND SOME MILD CALCIFICATION WITHIN THE SPHENOID SINUS OPACIFICATION. THIS SUGGESTS A CHRONIC INFLAMMATORY PROCESS. SMALL AIR FLUID LEVEL IN THE RIGHT MAXILLARY SINUS, HOWEVER, MAY REPRESENT AN ACUTE SINUSITIS. FOLLOW-UP NONEMERGENT SINUS CT MAY BE USEFUL FOR FURTHER EVALUATION FOLLOW-UP. JOB NUMBER: [id number] [facility]
== END 2018-02-26 20:03 | disposition home or self-care (01) ==
LOC: ER 16:09
DX: S01.01XA Laceration without foreign body of scalp, initial encounter (principal); S00.03XA Contusion of scalp, initial encounter; I95.9 Hypotension, unspecified; E11.9 Type 2 diabetes mellitus without complications; W18.39XA Other fall on same level, initial encounter; Y92.009 Unspecified place in unspecified non-institutional (private) residence as the place of occurrence of the external cause
CPT/HCPCS: 12001; 70450; 80048; 80164; 85025; 99284; J7030

== ENCOUNTER 2018-03-11 12:24 | Emergency (ER) | payer MEDICARE, MEDICAID ==
--- NOTE | 2018-03-11 12:39 | Emergency Department Record ---
History of Present Illness - General Chief Complaint: Suture removal Stated Complaint: STITCHES REMOVED Time Seen by Provider: 03/11/18 12:36 Source: Patient, RN notes reviewed - History of Present Illness Initial Comments: neo placed here Complaint: Suture/staple removal - Related Data Allergies Allergy/AdvReac Type Severity Reaction Status Date / Time Penicillins Allergy PT UNSURE Verified 02/26/18 16:26 OF REACTION Review of Systems Reviewed: No additional complaints except as noted below Constitutional: Reports: As per HPI. Denies: Chills, Fever, Malaise, Night sweats, Weakness, Weight change Eyes: Reports: As per HPI. Denies: Eye discharge, Eye pain, Photophobia, Vision change ENT: Reports: As per HPI. Denies: Congestion, Dental pain, Ear pain, Epistaxis , Hearing loss, Throat pain Respiratory: Reports: As per HPI. Denies: Cough, Dyspnea, Hemoptysis, Stridor, Wheezes Cardiovascular: Reports: As per HPI. Denies: Arrhythmia, Chest pain, Dyspnea on exertion, Edema, Murmurs, Orthopnea, Palpitations, Paroxysmal nocturnal dyspnea, Rheumatic Fever, Syncope Endocrine: Reports: As per HPI. Denies: Fatigue, Heat or cold intolerance, Polydipsia, Polyuria Gastrointestinal: Reports: As per HPI. Denies: Abdominal pain, Constipation, Diarrhea, Hematemesis, Hematochezia, Melena, Nausea, Vomiting Genitourinary: Reports: As per HPI. Denies: Dysuria, Frequency, Hematuria, Incontinence, Retention, Testicular pain, Testicular mass, Urgency Musculoskeletal: Reports: As per HPI. Denies: Arthralgia, Back pain, Gout, Joint swelling, Myalgia, Neck pain Skin: Reports: As per HPI. Denies: Bruising, Change in color, Change in hair/ nails, Lesions, Pruritus, Rash Neurological: Reports: As per HPI. Denies: Abnormal gait, Confusion, Headache, Numbness, Paresthesias, Seizure, Tingling, Tremors, Vertigo, Weakness Psychiatric: Reports: As per HPI. Denies: Anxiety, Auditory hallucinations, Depression, Homicidal thoughts, Suicidal thoughts, Visual hallucinations Hematological/Lymphatic: Reports: As per HPI. Denies: Anemia, Blood Clots, Easy bleeding, Easy bruising, Swollen glands Past Medical History - SOCIAL HISTORY Smoking Status: Never smoker Drug Use: None - RESPIRATORY Hx Respiratory Disorders: No Hx Sleep Apnea: Yes Hx of CPAP: Yes - CARDIOVASCULAR Hx Cardio Disorders: No Hx Hypertension: Yes - NEURO Hx Neuro Disorders: Yes Hx Seizures: Yes Comment:: hx of brain bleed per caregiver, CEREBAL PALSY - GI Hx GI Disorders: Yes Hx Reflux: Yes - Hx Genitourinary Disorders: Yes Hx Bladder Problem: Yes (overactive bladder) - ENDOCRINE Hx Endocrine Disorders: No Hx Diabetes: Yes (DM2) - MUSCULOSKELETAL Hx Musculoskeletal Disorders: No - PSYCH Hx Psych Problems: Yes Hx Anxiety: Yes (panic attack) Hx Depression: Yes Comment:: schizophrenia - HEMATOLOGY/ONCOLOGY Hx Hematology/Oncology Disorders: No Family Medical History Family Hx Comment (NOT TO BE USED IN PLACE OF ITEMS BELOW): UNKNOWN Physical Exam - General General Appearance: Alert, Oriented x3, Cooperative, No acute distress - Head Head exam: Normal inspection - Eye Eye exam: Normal appearance, PERRL Pupils: Normal accommodation - ENT ENT exam: Normal exam, Mucous membranes moist, Normal external ear exam, Normal orophraynx, TM's normal bilaterally Ear exam: Normal external inspection. negative: External canal tenderness Nasal Exam: Normal inspection. negative: Discharge, Sinus tenderness Mouth exam: Normal external inspection, Tongue normal Teeth exam: Normal inspection. negative: Dental caries Throat exam: Normal inspection. negative: Tonsillar erythema, Tonsillar exudate - Neck Neck exam: Normal inspection, Full ROM. negative: Tenderness - Respiratory Respiratory exam: Normal lung sounds bilaterally. negative: Respiratory distress - Cardiovascular Cardiovascular Exam: Regular rate, Normal rhythm, Normal heart sounds - GI/Abdominal GI/Abdominal exam: Soft, Normal bowel sounds. negative: Tenderness - Rectal Rectal exam: Deferred - exam: Deferred - Extremities Extremities exam: Normal inspection, Full ROM, Normal capillary refill. negative: Tenderness - Back Back exam: Reports: Normal inspection, Full ROM. Denies: Muscle spasm, Rash noted, Tenderness - Neurological Neurological exam: Alert, Normal gait, Oriented X3, Reflexes normal - Psychiatric Psychiatric exam: Normal affect, Normal mood - Skin Skin exam: Dry, Intact, Normal color, Warm Course - Reevaluation(s) Reevaluation #1: neo removed 03/11/18 12:37 Disposition Clinical Impression: Encounter for staple removal, Laceration Disposition: Home, Self-Care Condition: (1) Good Instructions: Stitches Removal (ED) Additional Instructions: follow up with family Time of Disposition: 12:37 Quality - Quality Measures Quality Measures: N/A - Blunt Head Trauma - Adult ICD10 Codes Entered: No - Blood Pressure Screening Does Patient Have Any of the Following: No Systolic Measurement: ~ Screening for High Blood Pressure: Patient Exclusion, Hx of HTN [G9744]
== END 2018-03-11 12:45 | disposition home or self-care (01) ==
LOC: ER 12:24
DX: Z48.02 Encounter for removal of sutures (principal)